=== PATIENT | female | born 1960 | race Caucasian/White ===

== ENCOUNTER → 2018-03-22 | Outpatient (CLI) | payer OTHER ==
[~2018-03-22] MED LIST: ALBU2.5V8 INH; AMLO5TAB7 PO; CHOL200059 PO; CRAN200C2 PO; DICL75TA PO; FISH1CAP PO; FLUT9.9S NS; HYDR12.58 PO; LACT1CAP8 PO; LOSA100T14 PO; MULT1TAB52 PO; [UNRECOGNIZED DRUG - REMARK]
--- NOTE | 2018-03-22 15:44 | EKG ---
[facility] [address] [place] [address] Test Date: 2018-03-22 Test Time: 15:42:05 Pat Name: HEENA Allenpartment: Room: Gender: F Psychotherapist Counselor: : 1960 Requested By: REHANA TIAN Order Number: [id number] Reading MD: Clyde Fu Measurements Intervals [place] Rate: 77 P: 51 [place]: 190 QRS: 36 QRSD: 94 T: 59 QT: 392 QTc: 445 Interpretive Statements SINUS RHYTHM NORMAL ECG RI6.01 No previous ECG available for comparison Electronically Signed On 03-24-2018 14:18:38 DIET CONSULTANT by Clyde Fu
[2018-03-22 16:00] LABS: BASO % 1 % (0-3); EOS # 0.1 x10^3/uL (0.0-0.7); EOS % 2 % (0-3); HEMATOCRIT 43.5 % (36.0-47.0); HEMOGLOBIN 14.7 g/dL (12.0-15.5); LYMPH # 2.1 x10^3/uL (1.0-4.8); LYMPH % 36 % (24-48); MEAN CORPUSCULAR HEMOGLOBIN 33 pg (25-35); MEAN CORPUSCULAR HGB CONC 34 g/dL (31-37); MEAN CORPUSCULAR VOLUME 97 fL (79-100); MONO # 0.6 x10^3/uL (0.0-1.1); MONO % 11 % (0-9); NEUT # 3.1 x10^3uL (1.8-7.7); NEUT % 51 % (31-73); PLATELET COUNT 320 x10^3/uL (140-400); RED CELL DISTRIBUTION WIDTH 12.5 % (11.5-14.5)
[2018-03-22 16:03] LABS: BILIRUBIN,URINE NEGATIVE (NEG); CLARITY,URINE CLEAR; COLOR,URINE YELLOW; NITRITE,URINE NEGATIVE (NEG); PH,URINE 7.5; PROTEIN,URINE NEGATIVE (NEG-TRACE); UROBILINOGEN,URINE 0.2 mg/dL (0.2 mg/dL)
[2018-03-22 16:17] LABS: BACTERIA,URINE 0 /HPF (0-FEW); RBC,URINE 0 /HPF (0-2); SQUAMOUS EPITHELIAL CELL,UR OCC /LPF; WBC,URINE OCC /HPF (0-4)
[2018-03-22 16:21] LABS: ALBUMIN 3.9 g/dL (3.4-5.0); ALBUMIN/GLOBULIN RATIO 1.1 (1.0-1.7); CALCIUM 9.5 mg/dL (8.5-10.1); CREATININE 0.8 mg/dL (0.6-1.0); GFR 73.9; POTASSIUM 3.6 mmol/L (3.5-5.1); TOTAL BILIRUBIN 0.4 mg/dL (0.2-1.0); TOTAL PROTEIN 7.6 g/dL (6.4-8.2)
--- NOTE | 2018-03-22 16:46 | RAD ---
Chest radiograph 03/22/2018 4:05 PM INDICATION: Preoperative for hysterectomy. COMPARISON: None available TECHNIQUE: Frontal and lateral views of the chest are provided. FINDINGS: The cardiomediastinal silhouette is within normal limits. There are no pleural effusions. There is no pulmonary vascular congestion. There is no pneumothorax. The lungs are clear. Mild bronchial wall thickening may be seen in setting of bronchitis. No significant osseous abnormality is identified. IMPRESSION: Mild bronchial wall thickening may be seen in setting of bronchitis. No focal airspace consolidation. Electronically signed by: Ariane Seals MD (03/22/2018 4:41 PM) [id number]
--- NOTE | 2018-03-29 19:12 | NUR ---
FAXED PRE - OP LABS,IA,CXR AND EKG'S PRELIMINARY REPORTS TO 'S OFFICE 03/23/2018 AT 1752 AND RECEIVED TRANSMITTAL CONFIRMATION. FAXED EKG'S FINAL REPORT TO 'S OFFICE 03/26/2018 AT 1104 AND RECEIVED TRANSMITTAL CONFIRMATION.
== END | disposition home or self-care (01) ==
LOC: SURGPAT 14:36
PROVIDERS: ATTEND Obstetrics & Gynecology
DX: Z01.818 Encounter for other preprocedural examination (principal); I10 Essential (primary) hypertension
CPT/HCPCS: 36415; 71046; 80053; 81001; 85025; 93005

== ENCOUNTER 2018-03-31 05:59 | Observation (INO) | payer OTHER ==
[~2018-03-31] VITALS: Ht 172.7 cm; Wt 90.3 kg
[~2018-03-31 05:59] MED LIST changes: +AMLO5TAB10 PO; -AMLO5TAB7 PO
[2018-03-31] MEDS ORDERED: CLINDAMYCIN 900MG PREMIX 50 ML IV PRN (06:00)
[2018-03-31] MEDS: IV RINGERS,LACTATED 1000ML 1,000 ML IV SCH ×2 (06:53→10:44)
[2018-03-31] MEDS ORDERED: MORPHINE SULFATE 4 MG/ML VIAL. IV PRN ×2 (07:00→10:30)
[2018-03-31] MEDS ORDERED: LIDOCAINE 1% PF 2 ML VIAL. ID PRN (07:00)
[2018-03-31] MEDS ORDERED: HYDROmorphone 2 MG/ML VIAL IV PRN (07:00)
[2018-03-31] MEDS ORDERED: fentaNYL PF VIAL 100 MCG/2 ML VIAL IV PRN (07:00)
[2018-03-31] MEDS ORDERED: ONDANSETRON PF 4 MG/2 ML VIAL. IV PRN ×2 (07:00→10:30)
[2018-03-31] MEDS ORDERED: PROCHLORPERAZINE 10 MG/2 ML VIAL. IV PRN (07:00)
[2018-03-31] MEDS ORDERED: fentaNYL PF VIAL 100 MCG/2 ML VIAL ONE (07:04)
[2018-03-31] MEDS ORDERED: LIDOCAINE 2% PF Vial for OR 5 ML VIAL. ONE (07:04)
[2018-03-31] MEDS ORDERED: PROPOFOL 20 ML IV ONE (07:04)
[2018-03-31] MEDS ORDERED: ROCURONIUM 50 MG/5 ML VIAL. ONE (07:05)
[2018-03-31] MEDS ORDERED: SUCCINYLCHOLINE 200 MG/10 ML VIAL. ONE (07:05)
[2018-03-31] MEDS ORDERED: BUPIVAC MPF-EPI 0.5%-1:200000 30 ML VIAL. ONE ×2 (07:14→08:04)
[2018-03-31] MEDS ORDERED: METHYLENE BLUE 1% 10 ML VIAL. ONE (07:14)
[2018-03-31] MEDS ORDERED: ESTROGENS, CONJ VAGINAL CREAM 30GM TUBE. ONE (07:14)
[2018-03-31] MEDS ORDERED: MIDAZOLAM HCL/PF 2 MG/2 ML VIAL. ONE (07:26)
[2018-03-31] MEDS ORDERED: 0.9 % SODIUM CHLORIDE 20 ML VIAL. IJ ONE ×2 (07:43→07:44)
[2018-03-31] MEDS ORDERED: DESFLURANE > 120 MINUTES IH ONE (07:58)
[2018-03-31] MEDS ORDERED: PHENYLEPHRINE 10 MG/ML VIAL. ONE (07:58)
[2018-03-31] MEDS ORDERED: DEXAMETHASONE SOD PHOS 20 MG/5 ML VIAL. ONE (07:58)
[2018-03-31] MEDS ORDERED: ONDANSETRON PF 4 MG/2 ML VIAL. ONE (08:22)
[2018-03-31] MEDS ORDERED: NEOSTIGMINE 10 MG/10 ML VIAL. ONE (08:22)
[2018-03-31] MEDS ORDERED: GLYCOPYRROLATE 1 MG/5 ML VIAL. ONE (08:22)
[2018-03-31] MEDS ORDERED: FAMOTIDINE 20 MG/2 ML VIAL ONE (08:22)
--- NOTE | 2018-03-31 10:29 | PDOC ---
BRIEF OPERATIVE NOTE Date: Mar 31, 2018 Pre-Op Diagnosis pelvic organ prolapse, cystocele, rectocele and uterine prolapse 3rd degree Post-Op Diagnosis same Procedure Performed LAVH/BSO/anterior and posterior repairs Surgeon Dr. Marianne Sweeney [employer] Officer [facility] Anesthesiologist Dr. Fountain Anesthesia Type: General Blood Loss 75cc IV Fluid 1300cc Urine Output 150cc clear via valenzuela Specimens Obtained cervix, uterus, bilateral tubes and ovaries and vaginal mucosa Findings 3rd degree cervical/uterine prolapse, 3rd cystocele and 2nd rectocele Complications none Operative Note [id number] MARIANNE SWEENEY MD Mar 31, 2018 10:29
[2018-03-31] MEDS ORDERED: MAGNESIUM HYDROXIDE 2,400 MG/30 ML ORAL.SUSP. PO PRN (10:30)
[2018-03-31] MEDS ORDERED: LACTULOSE 20 GM/30 ML SOLUTION. PO PRN (10:30)
[2018-03-31] MEDS ORDERED: NALOXONE 0.4 MG/ML VIAL. IV PRN (10:30)
[2018-03-31] MEDS ORDERED: SIMETHICONE 80 MG TAB.CHEW PO PRN (10:30)
[2018-03-31] MEDS ORDERED: KETOROLAC 30 MG/ML VIAL. IV PRN (10:30)
[2018-03-31] MEDS ORDERED: MAG HYDROX/ALUMINUM HYD/SIMETH 30 ML ORAL.SUSP PO PRN (10:30)
[2018-03-31] MEDS ORDERED: diphenhydrAMINE HCL 25 MG CAPSULE PO PRN (10:30)
[2018-03-31] MEDS ORDERED: CALCIUM CARBONATE 500 MG TAB.CHEW PO PRN (10:30)
[2018-03-31] MEDS ORDERED: ZOLPIDEM 5 MG TABLET. PO PRN (10:30)
[2018-03-31] MEDS ORDERED: HYDROcodone/APAP 5/325MG 1 TAB TABLET PO PRN (10:30)
[2018-03-31] MEDS ORDERED: 0.9 % SODIUM CHLORIDE 10 ML DISP.SYRIN. IV PRN (10:30)
[2018-03-31] MEDS ORDERED: diphenhydrAMINE 50 MG/ML VIAL IV PRN (10:30)
--- NOTE | 2018-03-31 11:03 | OP ---
DATE OF SURGERY: 03/31/2018 PREOPERATIVE DIAGNOSES: Pelvic organ prolapse with third-degree cystocele, second degree rectocele and third degree cervical and uterine prolapse. POSTOPERATIVE DIAGNOSES: Pelvic organ prolapse with third-degree cystocele, second degree rectocele and third degree cervical and uterine prolapse. PROCEDURE: Laparoscopic-assisted vaginal hysterectomy, bilateral salpingo-oophorectomy, and anterior and posterior colporrhaphy repairs with perineoplasty. SURGEON: Rehana Sweeney M.D. SHANK FAKER: Patrice Marcus. ANESTHESIOLOGIST: Dr. Fountain. ANESTHESIA: General. ESTIMATED BLOOD LOSS: 75 mL. URINE OUTPUT: 150 mL, clear via Palafox catheter. INTRAVENOUS FLUIDS: 1300 mL of crystalloid. SPECIMENS: Cervix, uterus, bilateral tubes and ovaries, and vaginal mucosa. FINDINGS: Again, third-degree cervical uterine prolapse, third-degree cystocele, second-degree rectocele, small uterus, normal bilateral tubes and ovaries for postmenopausal. COMPLICATIONS: None. DESCRIPTION OF PROCEDURE: This patient was taken to the operating room where general anesthesia was placed. The patient was placed in dorsal lithotomy position in [facility]. The patient's abdomen and vagina were prepped and draped in the normal sterile fashion and a Palafox catheter had been inserted under sterile technique. Upon my arrival, a timeout was performed. Once everyone agreed, a bivalve speculum was placed in the patient's vagina. A single tooth tenaculum was used to grasp the anterior lip of the cervix. A 10 mL of 0.5% Marcaine with epinephrine was used to circumferentially inject around the cervix. This was for both hemodissection and hemostatic purposes later. The Valtchev uterine manipulator was placed through the endocervical os, locked on the single tooth tenaculum and the bivalve speculum was then removed. Top gloves were discarded and changed. Attention was then turned to the abdomen where a small supraumbilical skin incision was made with the scalpel. A curved Salima was used to dissect through the subcuticular layer to the fascia. The 5 mm Visiport was used directly into the abdominal cavity. Opening patient pressure was 4-5 mmHg. Carbon dioxide gas was used to appropriately insufflate the abdominal cavity to maintain a pressure of 15 mmHg. Direct abdominal placement was confirmed via the laparoscope. The patient was placed in Trendelenburg position. Right and left lower quadrant ports were placed first making sure that it was clear on the inside, which it was, there was no adhesive disease; transilluminating the abdominal wall, finding an area clear of any vasculature, making a small incision and placing the 5 mm disposable atraumatic trocar under direct visualization without difficulty. This was done on both sides. A 2 mL of air was placed in the cuff of these. The camera was moved, looked at the umbilical port. It was clear and air was placed in it as well, the 2 mL of air in the cuff. Camera was moved back to the midline. The patient was in Trendelenburg. Both tubes and ovaries were normal, you could clearly see the ureters coursing well below the level of the ovaries. In the pelvis there was no adhesive disease, so the [place] was used to elevate the left tube and ovary and the LigaSure was used to cauterize the IP ligament and perform the oophorectomy, going over the uterus, going under the mesosalpinx, taking tube and ovary and then going across the left round ligament. This was done exactly the same on the right side, staying high under the ovary, crossing the IP ligament, cauterizing and cutting with the LigaSure, going over to cornua of the uterus and then going down and crossing the right round ligament as well. The bladder flap was started sharply and then the monopolar hook was used to go across like a hot knife and cut the bladder flap and then the [place] was used to peel it down off the uterus. Once it was down, the uterine vessels were obtained on both sides and then hugging the uterus and staying vertical while pushing cephalad on the Valtchev, going through the cardinal and broad ligaments down to the level of the uterosacrals. The uterus was completely free and blanched. So at this point all instruments were removed from the abdomen and attention was turned vaginally. The single tooth and Valtchev were removed. A weighted speculum was placed in the patient's vagina. Thyroid Ofelia clamps were placed on the anterior and posterior lips of the cervix respectively. A scalpel was used to make a circumferential incision in the cervix, stayed very low, just 1 cm out from the cervical os as she did have the cystocele with the prolapsed bladder and going around the posterior cul-de-sac was sharply entered with the Leon scissors. A #0 Vicryl stitch was used to secure the posterior peritoneum here to the vaginal cuff. It was tagged with a curved Salima clamp and the needle was cut and passed off. The short weighted speculum was removed and replaced with the long weighted vaginal Ana speculum in the posterior cul-de-sac. At this point, the suction tip was used to gently push up the anterior bladder mucosa and the bladder was sharply peeled off the cervix and then an open Ray-Bill was used to gently push it up entering the anterior cul-de-sac. The curved [place] was placed in the anterior cul-de-sac and the sponge was passed back off to the back table. At this point, curved Helene clamps x 2 were placed on the patient's left uterosacral ligament where they were doubly clamped with curved Helene's, cut with curved Leon scissors and suture ligated x 2 with 0 Vicryl. Second one was taken through the vaginal cuff securing uterosacral ligament to the vaginal cuff, tying it and tagging it with a straight Salima clamp and cutting and passing the needle off. This was done exactly the same on the right side, double clamping the uterosacrals with curved Helene's, cutting with Leon scissors, suture ligating x 2 with 0 Vicryl, taking the second one through the vaginal cuff and tagging it with a straight Salima clamp. The remaining pedicles on both sides were delineated with the curved mixture and the vaginal LigaSure was used to cauterize and cut these. The cervix, uterus, bilateral tubes and ovaries were delivered in total and passed off for permanent pathology. A sponge stick was used to examine the pedicles. Once hemostasis was assured, 2-0 Vicryl was taken through the anterior bladder peritoneum, left uterosacral ligament, posterior peritoneum and right uterosacral ligament, thus closing the peritoneum in a pursestring like fashion. The right and left uterosacral tags were clipped. At this point, Allises were placed at 10 and 2 on the anterior cuff before it was closed and 20 mL of a dilute solution of 200 mL of injectable saline to 50 mL of the 0.5% Marcaine with epinephrine. So, 20 mL of it was injected in the anterior bladder mucosa and the cystocele was performed. A small 1 cm vertical incision was made with a 15 blade scalpel. Allises were placed on either side and then the Metzenbaum scissors were used to open up the anterior bladder peritoneum placing Allises along the way. The Allises were then fanned out on either side and then Metzenbaums were used to sharply dissect and release the anterior vaginal mucosa from the defect and then an open Ray-Bill 4 x 4 was used to gently push up the defect once it was released and it reduced well in an avascular plane. A series of, I believe, 5 interrupted 2-0 Vicryl sutures were placed and tagged initially and then went back and tied while using a curved Salima to reduce the defect. The excess anterior vaginal mucosa was trimmed with Metzenbaum scissors on both sides and a full length 2-0 Vicryl was used to close the defect in an anterior to posterior running locked fashion the anterior defect and then it transitioned into the cuff closure as well and it was tied to that posterior cuff tag. Once this was done, curved Azael's were placed at 4 o'clock and 7 o'clock at the opening and 60 mL of that dilute solution was placed in the perineal body and the posterior defect. A scalpel was used to make a wedge incision out of the perineal body and the vaginal introitus opening and again Metzenbaum scissors were used to open up the posterior defect, placing Allises along the way till I was within 1 cm of the vaginal cuff closure. Again, the Allises were fanned out on either side. Allises were used to sharply release the defect and then the open Ray-Bill 4 x 4 was used to gently reduce the defect in that avascular plane and multiple stitches, I think, 8-9 were used here of interrupted 2-0 Vicryls to reduce the defect here. It was a larger defect. Again, first placing the stitch and tagging it and then going back and tying them in order using a curved Salima to reduce the defect. Again, excess posterior vaginal mucosa was trimmed and then a full length 2-0 Vicryl was used to close the vagina in a running locked fashion bringing the perineal body back together, going under the perineal body, closing the perineum in a [id number] fashion and then in a subcuticular fashion like an episiotomy repair and then going back in vaginally and tying it off. Once this was done, everything was examined vaginally. Everything was hemostatic and I did not pack her, urine was clear, everything looked good, so all gloves were discarded and changed and attention was turned back above for a second look. Copious irrigation revealed hemostasis to the vaginal cuff. The ovarian pedicles, right and left pericolic gutters were all clear. Tisseel was placed over the vaginal cuff with excellent results. All 3 trocar cuffs were deflated and the right and left lower quadrant ports were removed under direct visualization. These too were hemostatic. Gas was released from the umbilical port. All three port sites were closed with 4-0 nylon at the skin and injected with 10 mL of 0.5% Marcaine with epinephrine. The patient was awakened from anesthesia, extubated and brought to recovery room in stable condition. REHANA SWEENEY MD DR: MILO/jossy JOB#: [id number] / [id number]
[2018-03-31] MEDS: fentaNYL PF VIAL 100 MCG/2 ML VIAL IV PRN ×2 (11:04→11:43)
[2018-03-31 16:43] VITALS: BP 117/77
[2018-03-31] MEDS: oxyCODONE/APAP 5/325 1 TAB TABLET PO PRN ×2 (21:46→23:45)
[2018-03-31 23:29] VITALS: BP 133/89
[2018-04-01 04:28] LABS: CALCIUM 8.9 mg/dL (8.5-10.1); CREATININE 0.9 mg/dL (0.6-1.0); GFR 64.5; POTASSIUM 3.8 mmol/L (3.5-5.1)
[2018-04-01 06:14] VITALS: BP 129/80
[2018-04-01] MEDS: oxyCODONE/APAP 5/325 1 TAB TABLET PO PRN ×3 (06:24→13:55)
--- NOTE | 2018-04-01 07:59 | PDOC ---
SURGICAL PROGRESS NOTE Subjective Doing well without complaints. Minimal pain. Voiding without catheter. Tolerating regular diet and PO pain meds. Scant VB, ready to go home Vital Signs Vital Signs Date Time Temp Pulse Resp B/P (MAP) Pulse Ox O2 Delivery O2 Flow Rate FiO2 04/01/18 06:14 98.6 94 129/80 (96) 93 Room Air 98.6 03/31/18 23:29 18 03/31/18 12:15 2.0 I&O Intake and Output 04/01/18 07:01 Intake Total 3150 ml Output Total 2075 ml Balance 1075 ml Intake Oral 800 ml IV Total 1550 ml Blood Product 800 ml Output Urine Total 2000 ml Estimated Blood Loss 75 ml PATIENT HAS A RIVAS: No General: Alert, Oriented X3, Cooperative, No acute distress HEENT: Atraumatic Heart: Regular rate Abdomen: Soft, No tenderness, Other (all port sites c/d/i) Extremities: No clubbing, No cyanosis, No edema, No tenderness/swelling Skin: No rashes, No breakdown Neuro: Normal speech Psych/Mental Status: Mental status NL, Mood NL Labs Laboratory Tests Test 04/01/18 03:30 Hematocrit 38.5 % (36.0-47.0) Sodium Level 137 mmol/L (136-145) Potassium Level 3.8 mmol/L (3.5-5.1) Chloride Level 100 mmol/L (98-107) Carbon Dioxide Level 25 mmol/L (21-32) Anion Gap 12 (6-14) Blood Urea Nitrogen 15 mg/dL (7-20) Creatinine 0.9 mg/dL (0.6-1.0) Estimated GFR (Cockcroft-Gault) 64.5 Glucose Level 132 mg/dL (70-99) Calcium Level 8.9 mg/dL (8.5-10.1) Laboratory Tests Test 04/01/18 03:30 Hematocrit 38.5 % (36.0-47.0) Sodium Level 137 mmol/L (136-145) Potassium Level 3.8 mmol/L (3.5-5.1) Chloride Level 100 mmol/L (98-107) Carbon Dioxide Level 25 mmol/L (21-32) Anion Gap 12 (6-14) Blood Urea Nitrogen 15 mg/dL (7-20) Creatinine 0.9 mg/dL (0.6-1.0) Estimated GFR (Cockcroft-Gault) 64.5 Glucose Level 132 mg/dL (70-99) Calcium Level 8.9 mg/dL (8.5-10.1) I have reviewed the following labs, vitals and nursing Cardiovascular: HTN Pulmonary: No pertinent hx GI: No pertinent hx Heme/Onc: No pertinent hx Psych: No pertinent hx Rheumatologic: No pertinent hx Infectious disease: No pertinent hx ENT: No pertinent hx Assessment/Plan POD #1 s/p LAVH/BSO with anterior and posterior repairs Routine po care d/c to home later today NPV x 6 weeks light/limited activity x 2 weeks already has pain pills filled at home NO driving on narcotic pain meds OK for OTC ibuprofen as needed also keep scheduled f/u with me in the office call or return sooner for any other questions or concerns not limited to but including pain unrelieved with pain meds, increased or unexplained vaginal bleeding or T>100.4 REHANA TIAN MD Apr 01, 2018 07:59
--- NOTE | 2018-04-01 08:04 | PDOC3 ---
Discharge Summary Visit Information Date of Admission: Mar 31, 2018 Date of Discharge: Apr 01, 2018 Final Diagnosis pelvic organ prolapse Brief Hospital Course Allergies Allergies Coded Allergies Type Severity Reaction Last Updated Verified Penicillins Allergy Intermediate Hives 03/31/18 Yes Sulfa (Sulfonamide Antibiotics) Allergy Intermediate Rash 03/31/18 Yes latex Allergy Intermediate Itching 03/31/18 Yes Uncoded Allergies Type Severity Reaction Last Updated Verified METAL Adverse Reaction Unknown 03/22/18 Vital Signs Vital Signs Date Time Temp Pulse Resp B/P (MAP) Pulse Ox O2 Delivery O2 Flow Rate FiO2 04/01/18 06:14 98.6 94 129/80 (96) 93 Room Air 98.6 03/31/18 23:29 18 03/31/18 12:15 2.0 Lab Results Laboratory Tests Test 04/01/18 03:30 Hematocrit 38.5 % (36.0-47.0) Sodium Level 137 mmol/L (136-145) Potassium Level 3.8 mmol/L (3.5-5.1) Chloride Level 100 mmol/L (98-107) Carbon Dioxide Level 25 mmol/L (21-32) Anion Gap 12 (6-14) Blood Urea Nitrogen 15 mg/dL (7-20) Creatinine 0.9 mg/dL (0.6-1.0) Estimated GFR (Cockcroft-Gault) 64.5 Glucose Level 132 mg/dL (70-99) Calcium Level 8.9 mg/dL (8.5-10.1) Laboratory Tests Test 04/01/18 03:30 Hematocrit 38.5 % (36.0-47.0) Sodium Level 137 mmol/L (136-145) Potassium Level 3.8 mmol/L (3.5-5.1) Chloride Level 100 mmol/L (98-107) Carbon Dioxide Level 25 mmol/L (21-32) Anion Gap 12 (6-14) Blood Urea Nitrogen 15 mg/dL (7-20) Creatinine 0.9 mg/dL (0.6-1.0) Estimated GFR (Cockcroft-Gault) 64.5 Glucose Level 132 mg/dL (70-99) Calcium Level 8.9 mg/dL (8.5-10.1) Brief Hospital Course Ms. Adore Vazquez is a 57 old female who presented with symptomatic pelvic organ prolapse. She underwent LAVH/BSO with both anterior and posterior repairs without complications yesterday. She has had an unremarkable postoperative course. AFVSS, voiding without catheter, tolerating pO and pain meds. She will go home later today Discharge Information Condition at Discharge: Improved Follow Up: Weeks Disposition/Orders: D/C to Home Scheduled Amlodipine Besylate (Amlodipine Besylate) 5 Mg Tablet, 5 MG PO DAILY for BLOOD PRESSURE, (Reported) Entered as Reported by: CATHERINE SANTILLAN on 03/22/18 1508 Last Taken: Unknown Dose on 03/31/18 0500 Last Action: Continued on 03/31/18 1032 by REHANA TIAN Cholecalciferol (Vitamin D3) (Vitamin D-3) 2,000 Unit Tablet, 2,000 UNIT PO DAILY for SUPPLEMENT, (Reported) Entered as Reported by: CATHERINE SANTILLAN on 03/22/18 1511 Last Taken: Unknown Dose on 03/29/18 Last Action: HELD on 03/31/18 1032 by REHANA TIAN Cranberry Extract (Cranberry) 200 Mg Capsule, 200 MG PO DAILY for SUPPLEMENT, ( Reported) Entered as Reported by: CATHERINE SANTILLAN on 03/22/18 1513 Last Taken: Unknown Dose on 03/30/18 Last Action: HELD on 03/31/18 1032 by REHANA TIAN Diclofenac Sodium (Diclofenac Sodium) 75 Mg Tablet.dr, 1 TAB PO DAILY for ANTIINFLAMMATORY, #60 Ref 1 (Reported) Entered as Reported by: CATHERINE SANTILLAN on 03/22/18 1509 Last Taken: Unknown Dose on 03/29/18 Last Action: HELD on 03/31/18 1032 by REHANA TIAN Fish Oil/Dha/Epa (Fish Oil 1,200 Mg Fish Oil) 1 Each Capsule, 1 EACH PO DAILY for SUPPLEMENT, (Reported) Entered as Reported by: CATHERINE SANTILLAN on 03/22/18 1510 Last Taken: Unknown Dose on 03/29/18 Last Action: HELD on 03/31/18 1032 by REHANA TIAN Fluticasone Propionate (Flonase Allergy Relief) 9.9 M[address] [employer].susp, 2 SPRAYS NS DAILY for ALLERGIES, (Reported) Entered as Reported by: CATHERINE SANTILLAN on 03/22/18 1514 Last Action: HELD on 03/31/18 1032 by REHANA TIAN Hydrochlorothiazide (Hydrochlorothiazide Tablet) 12.5 Mg Tablet, 25 MG PO DAILY for DIURETIC, Ref 0 (Reported) Entered as Reported by: CATHERINE SANTILLAN on 03/22/18 1513 Last Taken: Unknown Dose on 03/30/18 Last Action: Converted on 03/31/181031 by REHANA TIAN Lactobacillus Combo No.11 (Probiotic) 1 Each Cap.sprink, 1 EACH PO DAILY for SUPPLEMENT, (Reported) Entered as Reported by: CATHERINE SANTILLAN on 03/22/18 1511 Last Taken: Unknown Dose on 03/30/18 Last Action: HELD on 03/31/18 103 by REHANA TIAN Losartan Potassium (Losartan Potassium) 100 Mg Tablet, 100 MG PO DAILY for HYPERTENSION, (Reported) Entered as Reported by: CATHERINE SANTILLAN on 03/22/18 1505 Last Taken: Unknown Dose on 03/31/18 0500 Last Action: Converted on 03/31/181031 by REHANA TIAN Multivitamin (Multivitamins) 1 Each Tablet, 1 TAB PO DAILY for SUPPLEMENT, #90 Ref 3 (Reported) Entered as Reported by: CATHERINE SANTILLAN on 03/22/18 1510 Last Taken: Unknown Dose on 03/29/18 Last Action: HELD on 03/31/18 1032 by REHANA TIAN Miscellaneous Medications [Dry Eye/Allergy Gtts] , (Reported) Entered as Reported by: CATHERINE SANTILLAN on 03/22/181514 Last Action: HELD on 03/31/18 103 by REHANA TIAN Patient Instructions Patient Instructions POD #1 s/p LAVH/BSO with anterior and posterior repairs Routine po care d/c to home later today NPV x 6 weeks light/limited activity x 2 weeks already has pain pills filled at home NO driving on narcotic pain meds OK for OTC ibuprofen as needed also keep scheduled f/u with me in the office call or return sooner for any other questions or concerns not limited to but including pain unrelieved with pain meds, increased or unexplained vaginal bleeding or T>100.4 REHANA TIAN MD Apr 01, 2018 08:04
[2018-04-01] MEDS ORDERED: amLODIPine BESYLATE 5 MG TABLET PO SCH (09:00)
[2018-04-01] MEDS ORDERED: hydroCHLOROthiazide 12.5 MG CAPSULE PO SCH (09:00)
[2018-04-01] MEDS ORDERED: LOSARTAN POTASSIUM 50 MG TABLET. PO SCH (09:00)
[2018-04-01] MEDS ORDERED: IBUPROFEN 400 MG TABLET. PO PRN (10:15)
[2018-04-01 11:10] VITALS: BP 126/88
--- NOTE | 2018-04-02 14:10 | PATHOLOGY ---
[facility] Accession Number: [id number] . 01 Material submitted: . CERVIX, UTERUS, BILATERAL FALLOPIAN TUBES, BILATERAL OVARIES . 01 Clinical history: . Pelvic organ prolapse . 02 Diagnosis: Uterus and attached bilateral fallopian tubes and ovaries, laparoscopic-assisted vaginal hysterectomy with bilateral salpingo-oophorectomy: - Focal mild chronic cervicitis with squamous metaplasia. - Nabothian cysts, cervix, multiple, small. - Atrophic endometrium. - Adenomyosis, uterine corpus, subbasal, focal. - Involutional changes of bilateral fallopian tubes and ovaries. (JPM:gerardo; 04/02/2018) QMS/04/02/2018 . 02 Comment: There is no atypia or evidence of malignancy. . 02 Electronically signed: . Logan Phillips MD, Pathologist NPI- [id number] . 01 Gross description: . The specimen is received in formalin, labeled "Lillie Vazquez, cervix, uterus, bilateral fallopian tubes and ovaries". Received is a 32 g, 7.3 x 3.5 x 2.5 cm uterus with attached cervix and attached adnexa, weighing 3 and 4 g, left and right, respectively. The uterine serosa is pink-segura and smooth in appearance. The 0.5 cm slit-like cervical os surrounded by pale newton, smooth to slightly disrupted ectocervical mucosa. The uterus is oriented using a peritoneal reflection and the anterior paracervical margin is inked black. The uterus is opened laterally to reveal a pale newton, slightly corrugated endocervical canal measuring 2.0 cm in length. The endometrial cavity is triangular measuring 4.1 cm in length by 1.4 cm in width. The endometrium is pale newton, glistening in appearance and measures less than 0.1 cm in thickness. Serial sectioning reveals a newton-pink, trabeculated myometrium measuring 1.1 cm in thickness with no grossly distinct nodules or lesions. . The left adnexa consists of a fimbriated fallopian tube measuring 4.1 cm in length by 0.4 cm in diameter attached to a 1.9 x 1.3 x 1.0 cm ovary. Sectioning through the fallopian tube reveals a pinpoint lumen. Sectioning through the ovary reveals pale newton, normal ovarian stroma. . The right adnexa consists of a fimbriated fallopian tube measuring 5.4 cm in length by 0.5 cm in diameter attached to a 2.2 x 1.3 x 1.0 cm ovary. Sectioning through the fallopian tube reveals a pinpoint lumen. Sectioning through the ovary reveals pale newton, normal ovarian stroma. The specimen is submitted representatively as follows: . A1 12:00 cervix A2 6:00 cervix A3 anterior endomyometrium A4 posterior endomyometrium A5 left adnexa A6 right adnexa. (CAA; 04/01/2018) QAC/QAC . 02 Pathologist provided ICD-10: N80.0, N85.8, N72, N88.8 . 02 CPT . 656773 Specimen Comment: A courtesy copy of this report has been sent to Specimen Comment: [phone], . Specimen Comment: Report sent to / DR MCGHEE Specimen Comment: A duplicate report has been generated due to demographic updates. Performed at: 01 [facility] [address], [place], [place] [id number] MD Rainer Berg MD Phone: [phone] Performed at: 02 [facility] [address], [place] [id number] MD Logan Phillips MD Phone: [phone]
== END 2018-04-01 14:40 | disposition home or self-care (01) ==
LOC: SURG 05:59 → 3 NORTH 10:30
PROVIDERS: ADMIT Obstetrics & Gynecology; ATTEND Obstetrics & Gynecology
DX: N81.3 Complete uterovaginal prolapse (principal); N88.8 Other specified noninflammatory disorders of cervix uteri; N72 Inflammatory disease of cervix uteri
CPT/HCPCS: 36415; 57260; 58552; 80048; 85014; 86850; 86900; 86901; 88305; 96374; A7015; G0378; G0379; J0330; J0780; J1100; J1885; J1956; J2001; J2250; J2405; J2704; J2710; J3010; J3490; J7030; J7120; Q9968